=== PATIENT | female | born 1950 | race Caucasian/White ===

== ENCOUNTER 2021-07-23 13:50 | Outpatient (CLI) | payer MEDICARE, OTHER ==
--- NOTE | 2021-07-23 15:28 | XRAY Report ---
PROCEDURE: Hip w/Pelvis 2-3V LT INDICATIONS: OSTEOARTHRITIS OF LEFT HIP JOINT TECHNIQUE: AP pelvis with lateral view(s) of the left hip(s). COMPARISON: None. FINDINGS: Bones: No fractures or dislocations. Pelvic ring appears intact. No suspicious bony lesions. Tota l right hip arthroplasty. Moderate to severe left hip degenerative arthritis with bulky osteophytes a nd joint space loss. Soft tissues: The visualized bowel gas pattern is normal. No suspicious soft tissue calcifications. IMPRESSION: Moderate to severe left hip degenerative arthritis. Reviewed by: Reji Cervantes MD on 07/23/2021 3:26 PM PST Approved by: Reji Cervantes MD on 07/23/2021 3:26 PM PST Station ID: [id number]
== END 2021-07-23 13:51 | disposition home or self-care (01) ==
LOC: DI.S 13:50
PROVIDERS: ATTEND Nurse Practitioner Family
DX: M16.12 Unilateral primary osteoarthritis, left hip (principal)

== ENCOUNTER 2021-11-05 09:08 | Outpatient (CLI) | payer MEDICARE ==
--- NOTE | 2021-11-12 08:14 | Mammography Report ---
BILATERAL DIGITAL SCREENING MAMMOGRAM 3D/2D WITH EXAGGERATED CC: 11/05/2021 CLINICAL: Routine screening. Comparison is made to exams dated: 02/29/2020 mammogram, 12/14/2018 mammogram, and 05/01/2016 mammogram - [facility]. The tissue of both breasts is heterogeneously dense. This may lower the s ensitivity of mammography. No significant masses, calcifications, or other findings are seen in either breast. There has been no significant interval change. IMPRESSION: NEGATIVE There is no mammographic evidence of malignancy. A 1 year screening mammogram is recommended. This exam was interpreted at Station ID: [id number]. NOTE: For mammograms, a report in lay terms will be sent to the patient. Approximately 15% of breast malignancies will not be visualized mammographically. In the management of a palpable breast mass, a negative mammogram must not discourage biopsy of a clinically suspicious lesion. Electronically Signed By: Faraz Oquendo M.D. ddp/penrad:11/11/2021 15:49:03 ACR BI-RADS Category 1: Negative 3341F PARENCHYMAL PATTERN: (D) - The breast(s) demonstrate(s) heterogeneously dense fibroglandular jose enrique hampton. BI-RADS CATEGORY: (1) - 1 RECOMMENDATION: (ANNUAL) - Recommend routine annual screening mammography. [id number] 1 year screening LATERALITY: (B)
== END 2021-11-05 09:09 | disposition home or self-care (01) ==
LOC: DI.S 09:08
PROVIDERS: ATTEND Nurse Practitioner Family
DX: Z12.31 Encounter for screening mammogram for malignant neoplasm of breast (principal)

== ENCOUNTER 2023-12-21 08:00 | Outpatient (CLI) | payer MEDICARE | END 2023-12-21 08:01 | disposition home or self-care (01) | LOC: LAB.S 08:00 | PROVIDERS: ATTEND Registered Nurse | DX: U07.1 COVID-19 (principal) ==

== ENCOUNTER 2024-02-05 11:02 | Outpatient (CLI) | payer MEDICARE, OTHER ==
--- NOTE | 2024-02-06 15:00 | XRAY Report ---
PROCEDURE: Hip w/Pelvis 2-3V LT INDICATIONS: PRESENCE OF LEFT ARTIFICIAL HIP JOINT TECHNIQUE: 3 views of the hip were acquired. COMPARISON: Left hip radiograph on July 23, 2021. FINDINGS: Bones: No fractures or dislocations. Left total hip arthroplasty intact with no perihardware lucency to suggest hardware loosening. Anatomic alignment. Limited views of the right total hip arthroplasty are intact without complication. Degenerative changes of the lower lumbar spine and bilateral SI juan nts. No suspicious bony lesions. Soft tissues: No suspicious soft tissue calcifications or masses. IMPRESSION: 1.No acute bony abnormality. 2.Left total hip arthroplasty is intact without complication. Reviewed by: Arianne Jiménez MD on 02/06/2024 2:59 PM PDT Approved by: Arianne Jiménez MD on 02/06/2024 2:59 PM PDT Station ID: [id number]
== END 2024-02-05 11:03 | disposition home or self-care (01) ==
LOC: DI 11:02
PROVIDERS: ATTEND Orthopaedic Surgery
DX: Z47.1 Aftercare following joint replacement surgery (principal); Z96.642 Presence of left artificial hip joint

== ENCOUNTER 2024-03-02 08:00 | Outpatient (CLI) | payer MEDICARE, OTHER ==
--- NOTE | 2024-03-02 10:47 | XRAY Report ---
PROCEDURE: Knee 3V RT INDICATIONS: RIGHT KNEE PAIN TECHNIQUE: 3 views of the knee(s) were acquired. COMPARISON: None. FINDINGS: Bones: No fractures or dislocations. No suspicious bony lesions. Chondrocalcinosis. Mild osteophyte formation. On nonstanding views, no evidence of significant joint space loss. Soft tissues: Small knee joint effusion. No suspicious soft tissue calcifications or masses. IMPRESSION: Mild degenerative change. No acute bony abnormality. Reviewed by: Reji Cervantes MD on 03/02/2024 10:46 AM PDT Approved by: Reji Cervantes MD on 03/02/2024 10:46 AM PDT Station ID: [id number]
== END 2024-03-02 23:59 | disposition home or self-care (01) ==
LOC: DI.S 08:00
PROVIDERS: ATTEND Registered Nurse
DX: M17.11 Unilateral primary osteoarthritis, right knee (principal)

== ENCOUNTER 2024-03-05 12:40 | Emergency (ER) | payer MEDICARE, OTHER ==
[2024-03-05 13:17] VITALS: BP 176/71; O2SAT 99
--- NOTE | 2024-03-05 13:52 | ED Physician Documentation ---
PD HPI URI - Stated complaint Stated Complaint: C+, NAUSEA, FATIGUE - Chief complaint Chief Complaint: General - History obtained from History obtained from: Patient PD PAST MEDICAL HISTORY - Past Medical History Past Medical History: Yes Other Past Medical History: stenosis of cerebrum - Past Surgical History Past Surgical History: Yes Ortho: Hip replacement, Other - Present Medications Home Medications: Ambulatory Orders Medication Instructions Recorded Confirmed Clopidogrel [Plavix] 75 mg PO ONCE 03/05/24 03/05/24 - Allergies Allergies/Adverse Reactions: Allergies Allergy/AdvReac Type Severity Reaction Status Date / Time No Known Drug Allergies Allergy Verified 03/05/24 12:54 - Social History Does the pt smoke?: No Smoking Status: Never smoker Does the pt drink ETOH?: No Does the pt have substance abuse?: No - Immunizations Immunizations are current?: Yes Results - Vitals Vitals: Vital Signs - 24 hr 03/05/24 12:51 Temperature 36.7 C Heart Rate 71 Respiratory 16 Rate Blood Pressure 176/71 H O2 Saturation 99 Departure - Departure
== END 2024-03-05 14:20 | disposition left against medical advice (07) ==
LOC: ED 12:40
DX: Z53.21 Procedure and treatment not carried out due to patient leaving prior to being seen by health care provider (principal)

== ENCOUNTER 2024-03-10 08:00 | Outpatient (CLI) | payer MEDICARE, OTHER | END 2024-03-10 23:59 | disposition home or self-care (01) | LOC: LAB.S 08:00 | PROVIDERS: ATTEND Registered Nurse | DX: U07.1 COVID-19 (principal) ==

== ENCOUNTER 2024-03-15 09:42 | Outpatient (CLI) | payer MEDICARE, OTHER ==
--- NOTE | 2024-03-15 21:18 | MRI Report ---
PROCEDURE: Knee RT WO INDICATIONS: R KNEE PAIN TECHNIQUE: Noncontrast sagittal PD fast spin echo and T2 fast spin echo with fat saturation, sagittal 3-D spoile d GE with fat saturation; coronal T1 spin echo and PD fast spin echo with fat saturation, and axial P D fast spin echo with fat saturation through the knee. COMPARISON: Right knee radiographs 03/02/2024. FINDINGS: Image quality: Excellent. Anterior cruciate ligament: Intact. Posterior cruciate ligament: Intact. Medial collateral ligament: Intact. Lateral collateral ligament: Intact. Medial meniscus: There is horizontal oblique tearing of the junction of the posterior horn and body of the medial meniscus extending to the outer third of the tibial articular surface. Lateral meniscus: Intact. Medial and lateral tendons: The semimembranosus tendon insertions appear intact. Visualized portion s of the pes anserinus tendons appear normal. The popliteus tendon appears intact. Iliotibial band appears normal. Anterior structures: The patellar tendon and the distal quadriceps tendon appear intact. No patellar subluxation. No femoral trochlear dysplasia or ventral trochlear prominence. No edema in the infra patellar fat pad. Bones: No acute trabecular bone injury or fracture. Medial femorotibial cartilage: Mild partial thickness cartilage thinning without a focal defect. Lateral femorotibial cartilage: Mild partial thickness cartilage thinning and minimal surface irregu larity. Patellofemoral cartilage: High-grade cartilage loss is seen at the median ridge and medial facet of the patella and the lateral trochlear groove. Soft tissues: There is a medium-sized joint effusion. There is a small to moderate medial popliteal cyst. The musculature surrounding the knee is normal in bulk. A ganglion cyst is seen adjacent to th e origin of the lateral head of the gastrocnemius muscle measuring approximately 1.5 x 0.9 x 0.7 cm IMPRESSION: 1.Small horizontal oblique tear identified. The posterior horn and body of the medial meniscus extend ing to the outer third of the tibial articular surface. 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 There is mild grade II chondromal acia/cartilage thinning in the medial and lateral femorotibial compartments. 3.Cruciate and collateral ligaments are intact. No acute trabecular bone injury. 4.Moderate joint effusion. Small moderate medial popliteal cyst. Reviewed by: Marco Scherer MD on 03/15/2024 9:16 PM PDT Approved by: Marco Scherer MD on 03/15/2024 9:16 PM PDT Station ID: [id number]
== END 2024-03-15 09:43 | disposition home or self-care (01) ==
LOC: DI 09:42
PROVIDERS: ATTEND Registered Nurse
DX: S83.241A Other tear of medial meniscus, current injury, right knee, initial encounter (principal); M94.261 Chondromalacia, right knee; M25.461 Effusion, right knee; M71.21 Synovial cyst of popliteal space [Baker], right knee

== ENCOUNTER 2024-04-17 21:54 | Outpatient (CLI) | payer MEDICARE, OTHER ==
--- NOTE | 2024-04-18 12:26 | Ultrasound Report ---
PROCEDURE: Pelvic Complete INDICATIONS: FIBROIDS, UTERUS TECHNIQUE: Real-time transabdominal scanning was performed of the pelvic organs, with image documentation. COMPARISON: No relevant comparisons available at time of dictation. FINDINGS: Uterus: Uterus is anteverted and normal in size at 8.8 x 6.6 x 8 cm. The myometrium is homogeneous. The endometrium measures 7.5 mm in combined thickness. Intramural fibroid with submucosal interfac e at the fundus measuring 5.5 x 4.4 x 6 cm Ovaries: Right ovary is partially visualized, measuring 1.7 x 1.7 cm. Left ovary is not visualized. T his is presumably due to technique and atrophy. No adnexal mass. Other: No free pelvic fluid. IMPRESSION: Note: No relevant comparisons available at time of dictation. Intramural fibroid with submucosal interface at the fundus measuring 5.5 x 4.4 x 6 cm. Reviewed by: Michele Stacy MD on 04/18/2024 12:25 PM PDT Approved by: Michele Stacy MD on 04/18/2024 12:25 PM PDT Station ID: [id number]
== END 2024-04-17 21:55 | disposition home or self-care (01) ==
LOC: DI 21:54
PROVIDERS: ATTEND Obstetrics & Gynecology
DX: D25.1 Intramural leiomyoma of uterus (principal)